=== PATIENT | female | born 1980 | race Caucasian/White ===

== ENCOUNTER 2021-02-19 09:46 | Outpatient (CLI) | payer MEDICARE ==
[2021-02-23 12:11] LABS: Anion Gap 13 mmol/L (10-20); BUN (Urea Nitrogen) 11 mg/dL (7.0-18.7); Calc. Creatinine Clearance 0 mL/min (70-130); Calcium 7.7 mg/dL (7.8-10.44); Carbon Dioxide 21 mmol/L (22-29); Chloride 105 mmol/L (98-107); Glucose 83 mg/dL (70-105); Potassium 3.2 mmol/L (3.5-5.1); Sodium 136 mmol/L (136-145)
== END 2021-02-19 09:47 | disposition home or self-care (01) ==
LOC: CSHCT 09:46
PROVIDERS: ATTEND Internal Medicine Gastroenterology
DX: R10.13 Epigastric pain (principal); R63.4 Abnormal weight loss; R11.2 Nausea with vomiting, unspecified; Z98.84 Bariatric surgery status; D50.9 Iron deficiency anemia, unspecified
CPT/HCPCS: 74177; J1642

== ENCOUNTER 2021-04-20 14:20 | Outpatient (CLI) | payer MEDICARE, MEDICAID ==
[2021-04-21 00:41] LABS: SARS-CoV-2 PCR by NAA Not Detected (NotDetected)
[2021-04-23] MEDS ORDERED: Bupivacaine 0.25% HCL 30 ML VIAL ONE (09:42)
[2021-04-23] MEDS ORDERED: EPINEPHrine 1 MG/ML AMP ONE (09:43)
== END 2021-04-20 14:21 | disposition home or self-care (01) ==
LOC: CJX 14:20 → CSHLAB 14:21
PROVIDERS: ATTEND Surgery
DX: Z20.822 Contact with and (suspected) exposure to COVID-19 (principal)
CPT/HCPCS: 87635; U0003; U0005